=== PATIENT | male | born 2000 ===

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

== ENCOUNTER 2023-05-28 22:05 | Emergency (ER) | payer BC ==
--- OUTSIDE RECORDS SUMMARY | 2023-05-28 22:08 | XMS REPORT | Continuity of Care Document ---
:2000 Author Organization [facility] t Address [address] [address] Care Team Providers Name Role Phone SISSON_C Attending Clinician Unavailable SISSON_C Admitting Clinician Unavailable Payers Payer Name Policy Type Policy Number Effective Date Expiration Date S our[place] [id number] 2020 00:00:00 [place] Problems This patient has no known problems. Allergies, Adverse Reactions, Alerts This patient has no known allergies or adverse reactions. Medications This patient has no known medications. Procedures This patient has no known procedures. Encounters Start End Encounter Admission Attending Care Care Encounter Source Date/Time Date/Time Type Type Clinicians Facility Department ID 2022-04-02 2022-04-02 Outpatient SISSON_C [facility] [id number]- 2021 [place] 00:00:00 00:00:[facility] 2022-04-02 2022-04-02 Outpatient SISSON_C [facility] [id number]- 2022 [place] 00:00:00 00:00:00 [facility] Results This patient has no known results.
[2023-05-28] MEDS ORDERED: IBUPROFEN 400 MG TAB ONE (23:08)
[2023-05-28] MEDS ORDERED: HYDROCODONE/APAP 5/325 MG TAB ONE (23:08)
[2023-05-28] MEDS ORDERED: TDAP (DIPHTH,PERTUSS(ACELL),TET VAC) 0.5 ML VIAL IMVAC ONE (23:08)
--- NOTE | 2023-05-28 23:19 | EDPHYS ---
Physician Documentation [facility] Name: Rex Gupta Age: 23 yrs Sex: Male : 2000 Arrival Date: 05/28/2023 Time: 22:05 Bed 17 Private MD: ED Physician Negro Parkinson HPI: 05/28 22:45 This 23 yrs old Unknown Male presents to ER via Ambulatory with complaints of cp laceration to finger. 22:45 The patient or guardian reports a bite, by a dog. The complaints affect the left fourth cp finger. 22:45 Context: The problem was sustained at home, resulted from animals fighting. Onset: The cp symptoms/episode began/occurred just prior to arrival. Associated signs and symptoms: The patient has no apparent associated signs or symptoms. Historical: - Allergies: 22:18 No Known Allergies; cm10 - Home Meds: 22:18 None [Active]; cm10 - PMHx: 22:18 None; cm10 - PSHx: 22:19 Appendectomy; cm10 - Immunization history:: Adult Immunizations unknown. - Social history:: Smoking status: Reported history of juuling and/or vaping. ROS: 22:50 Constitutional: Negative for chills, fever, poor PO intake, cp 22:50 Cardiovascular: Negative for chest pain, cp 22:50 Respiratory: Negative for cough, shortness of breath, 22:50 Abdomen/GI: Negative for abdominal pain, vomiting, diarrhea, constipation, 22:50 MS/extremity: Negative for decreased range of motion, paresthesias, 22:50 Skin: Positive for laceration(s), of the palmar aspect of middle phalanx of left ring finger, 22:50 All other systems are negative, Exam: 22:55 Constitutional: The patient appears in no acute distress, alert, awake, well developed, cp well nourished, 22:55 Head/Face: Normocephalic, atraumatic. cp 22:55 Chest/axilla: Inspection: normal, 22:55 Cardiovascular: Rate: normal, 22:55 Respiratory: the patient does not display signs of respiratory distress, Respirations: normal, no use of accessory muscles, no retractions, labored breathing, is not present, 22:55 Abdomen/GI: Inspection: abdomen appears normal, 22:55 Musculoskeletal/extremity: Extremities: grossly normal except: noted in the left hand: laceration noted middle phalanx caba side left fourth finger, no signs of tendon damage, digit neurovascular intact, full active ROM, mild bleeding noted, Vital Signs: 22:17 BP 139 / 82; Pulse 94; Resp 18; Temp 99; Pulse Ox 99% ; Weight 95.25 kg; Height 6 ft. 3 cm10 in. ; Pain 7/10; 22:17 Body Mass Index 26.25 (95.25 kg, 190.5 cm) cm10 22:17 Pain Scale: Adult cm10 MDM: 22:20 Patient medically screened. cp 22:45 Differential diagnosis: open fracture, tendon injury, amputation. 23:17 Data reviewed: vital signs, nurses notes, radiologic studies, plain films. cp 23:17 I considered the following discharge prescriptions or medication management in the emergency department Medications were administered in the Emergency Department. See MAR. Independent interpretation of the following test(s) in the Emergency Department X-Ray: My interpretation is images of left hand negative for fracture. Counseling: I had a detailed discussion with the patient and/or guardian regarding the historical points, exam findings, and any diagnostic results supporting the discharge/admit diagnosis, radiology results, to return to the emergency department if symptoms worsen or persist or if there are any questions or concerns that arise at home. Response to treatment: the patient's symptoms have mildly improved after treatment, and as a result, I will discharge patient. Special discussion: I discussed in detail with the patient the higher chance of wound infection based on his presenting history. instructions on wound care. 05/28 22:30 Order name: XRAY Hand LEFT 3 View 05/28 23:15 Order name: Wound Care: please clean, irrigate wounds and dress; Complete Time: 23:54 cp Administered Medications: 22:45 Drug: Ibuprofen PO 800 mg PO once Route: PO; bp 23:15 Follow up: Response: No adverse reaction bp 22:45 Drug: Tetanus-Diphtheria Toxoid IM Adult 0.5 ml IM once; Provide Vaccine Information bp Statement (VIS). 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: [employer]; Exp: Sun Dec 25 2024; Lot #: [id number]; Series: 1 of 1; Patient Consent: Obtained; Date/Time: ; Source Name: Rex Gupta; Source Relationship: Self; Address Information: [address] [place] [id number]; ; Education: Provided; VIS Presented Date: ; VIS Publication: Tetanus/Diphtheria/Pertussis (Tdap/Td) VIS 09/30/2011 (historic); Vaccine Funding Eligibility: C eligibility not determined/unknown} Route: IM; Site: right deltoid; 23:15 Follow up: Response: No adverse reaction bp 22:45 Drug: HYDROcodone-acetaminophen PO 5 mg-325 mg 1 tabs PO once Route: PO; bp 23:15 Follow up: Response: No adverse reaction bp Disposition Summary: 05/28/23 23:18 Discharge Ordered Notes: Location: Home cp Problem: new cp Symptoms: have improved cp Condition: Stable cp Diagnosis - Bitten by dog cp - Laceration without foreign body of finger without damage to nail - left fourth cp Followup: cp - With: Private Physician - When: 1 - 2 days - Reason: Worsening of condition Discharge Instructions: - Discharge Summary Sheet cp - Nonsutured Laceration Care cp - Animal Bite, Adult cp Forms: - Medication Reconciliation Form cp - Thank You Letter cp - Antibiotic Education cp - Prescription Opioid Use cp - Patient Portal Instructions cp - Leadership Thank You Letter cp Prescriptions: - Augmentin 875-125 mg Oral Tablet - take 1 tablet ORAL route every 12 hours for 10 days; 20 tablet; Refills: 0, cp Product Selection Permitted - Ibuprofen 800 mg Oral Tablet - take 1 tablet ORAL route every 8 hours As needed take with food; 30 tablet; cp Refills: 0, Product Selection Permitted Signatures: Dispatcher [employer] [facility] Sal Fitch PA PA cp Anselmo Self, RN RN bp Carmen Tristan, RN RN cm10 Corrections: (The following items were deleted from the chart) 22:19 22:18 PSHx: Unable to Obtain; cm10 cm10 22:19 22:18 PSHx: None; cm10 cm10 05/29 23:04 05/28 22:35 Differential diagnosis: open fracture, tendon injury, amputation cp cp
--- NOTE | 2023-05-28 23:19 | ER ---
Nurse's Notes [facility] Name: Rex Gupta Age: 23 yrs Sex: Male : 2000 Arrival Date: 05/28/2023 Time: 22:05 Bed 17 Private MD: Diagnosis: Bitten by dog;Laceration without foreign body of finger without damage to nail-left fourth Presentation: 05/28 22:17 Chief complaint: Patient states: dog bite to 4th digit on left hand. Pt states that his cm10 dogs were fighting and he tried to break up the fight and he got bit in the process. Coronavirus screen: Vaccine status: Patient reports being unvaccinated. Client denies travel out of the [place] in the last 14 days. Ebola Screen: Patient denies travel to an Ebola-affected area in the 21 days before illness onset. No symptoms or risks identified at this time. Initial Sepsis Screen: Does the patient meet any 2 criteria? No. Patient's initial sepsis screen is negative. Does the patient have a suspected source of infection? No. Patient's initial sepsis screen is negative. Risk Assessment: Do you want to hurt yourself or someone else? Patient reports no desire to harm self or others. Onset of symptoms was May 28, 2023. 22:17 Method Of Arrival: Ambulatory cm10 22:17 Acuity: RAMESH 4 cm10 Triage Assessment: 22:19 General: Appears in no apparent distress. comfortable, Behavior is calm, cooperative. cm10 Pain: Complains of pain in palmar aspect of distal phalanx of left ring finger. Neuro: No deficits noted. Level of Consciousness is awake, alert, Oriented to person, place, time, situation. Respiratory: No deficits noted. Airway is patent Respiratory effort is even, unlabored, Respiratory pattern is regular, symmetrical. 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 - Social history:: Smoking status: Reported history of juuling and/or vaping. Screenin:19 [facility] ED Fall Risk Assessment (Adult) History of falling in the last 3 months, cm10 including since admission No falls in past 3 months (0 pts) Confusion or Disorientation No (0 pts) Intoxicated or Sedated No (0 pts) Impaired Gait No (0 pts) Mobility Assist Device Used No (0 pt) Altered Elimination No (0 pt) Score/Fall Risk Level 0 - 2 = Low Risk Oriented to surroundings, Maintained a safe environment, Hourly rounding (assess needs \T\ fall precautionary measures) done. Abuse screen: Denies threats or abuse. Denies injuries from another. Nutritional screening: No deficits noted. Tuberculosis screening: No symptoms or risk factors identified. Assessment: 22:26 General: SUPERFICIAL LAC NOTED, NO ACTIVE BLEEDING. PT REPORTS INCIDENT REPORTED TO ANIMAL CONTROL EDUCATION DIAGNOSTICIAN. Vital Signs: 22:17 BP 139 / 82; Pulse 94; Resp 18; Temp 99; Pulse Ox 99% ; Weight 95.25 kg; Height 6 ft. 3 cm10 in. ; Pain 7/10; 22:17 Body Mass Index 26.25 (95.25 kg, 190.5 cm) cm10 22:17 Pain Scale: Adult cm10 ED Course: 22:12 Patient arrived in ED. [id number] 22:18 Triage completed. cm10 22:18 Sal Fitch PA is PHCP. cp 22:18 Negro Parkinson MD is Attending Physician. cp 22:19 Arm band placed on Patient placed in an exam room, on a stretcher. cm10 22:20 Patient has correct armband on for positive identification. Bed in low position. Call cm10 light in reach. Provided Education on: ER Process and procedures.. 22:26 Anselmo Self, RN is Primary Nurse. bp 22:53 XRAY Hand LEFT 3 View In Process Unspecified. EDMS 23:54 No provider procedures requiring assistance completed. Patient did not have IV access bp during this emergency room visit. Wound care: to BITE located on palmar aspect of distal phalanx of left ring finger was cleaned with Hibiclens, dressed with Neosporin, Patient tolerated well. Administered Medications: 22:45 Drug: Ibuprofen PO 800 mg PO once Route: PO; bp 23:15 Follow up: Response: No adverse reaction bp 22:45 Drug: Tetanus-Diphtheria Toxoid IM Adult 0.5 ml IM once; Provide Vaccine Information bp Statement (VIS). 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 Manager: [employer]; Exp: Sun Dec 25 2024; Lot #: [id number]; Series: 1 of 1; Patient Consent: Obtained; Date/Time: ; Source Name: Rex Gupta; Source Relationship: Self; Address Information: [address] [place] [address]; ; Education: Provided; VIS Presented Date: ; VIS Publication: Tetanus/Diphtheria/Pertussis (Tdap/Td) VIS 09/30/2011 (historic); Vaccine Funding Eligibility: [facility] eligibility not determined/unknown} Route: IM; Site: right deltoid; 23:15 Follow up: Response: No adverse reaction bp 22:45 Drug: HYDROcodone-acetaminophen PO 5 mg-325 mg 1 tabs PO once Route: PO; bp 23:15 Follow up: Response: No adverse reaction bp Outcome: 23:18 Discharge ordered by . cp 23:54 Discharged to home ambulatory, with family, bp 23:54 Condition: stable 23:54 Discharge instructions given to patient, family, Instructed on discharge instructions, follow up and referral plans. medication usage, wound care, Demonstrated understanding of instructions, follow-up care, medications, wound care, Prescriptions given X 2, 23:55 Patient left the ED. bp Signatures: Dispatcher [employer] EDMS Sal Fitch PA PA cp Peltier, Brian, RN Ivette [id number] Carmen Tristan RN RN cm10 Corrections: (The following items were deleted from the chart) : PSHx: Unable to Obtain; cm10 cm10 : PSHx: None; cm10 cm10
[2023-05-29 01:58] VITALS: BP 139/82; TEMP 99; O2SAT 99
--- NOTE | 2023-05-29 16:16 | RAD REPORT ---
EXAM DESCRIPTION: RAD - Hand Left 3 View - 05/28/2023 10:51 pm CLINICAL HISTORY: 23 years Male, ANIMAL BITE COMPARISON: None. FINDINGS: No fracture or dislocation. Joint spaces are preserved. Soft tissues are unremarkable. IMPRESSION: No acute osseous abnormality. Electronically signed by: Eric Reveles DO 05/28/2023 11:02 PM CDT Due to temporary technical issues with the PACS/Fluency reporting system, reports are being signed by the in house radiologists without review as a courtesy to insure prompt reporting. The interpreting radiologist is fully responsible for the content of the report.
== END 2023-05-28 23:55 | disposition home or self-care (01) ==
LOC: ER 22:05
DX: S61.215A Laceration without foreign body of left ring finger without damage to nail, initial encounter (principal); W54.0XXA Bitten by dog, initial encounter; Z23 Encounter for immunization
CPT/HCPCS: 90471; 99284